=== PATIENT | male | born 1975 | race Caucasian/White ===

== ENCOUNTER 2017-10-25 00:21 | Emergency (ER) | payer SELFPAY, OTHER | END 2017-10-25 04:29 | disposition left against medical advice (07) | LOC: FTE 00:21 | DX: Z53.21 Procedure and treatment not carried out due to patient leaving prior to being seen by health care provider (principal) ==

== ENCOUNTER 2017-10-29 22:38 | Emergency (ER) | payer SELFPAY | END 2017-10-30 01:44 | disposition left against medical advice (07) | LOC: FTE 22:38 | DX: Z53.21 Procedure and treatment not carried out due to patient leaving prior to being seen by health care provider (principal) ==